=== PATIENT | male | born 1945 | race Caucasian/White ===

== ENCOUNTER 2018-01-14 16:57 | Emergency (ER) | payer OTHER, MEDICARE ==
[~2018-01-14 16:57] MED LIST: AMLO5TAB22 PO; ASPI81TA82 PO; DIVA250ER PO; LAMO100 PO; LISI-363 PO; OXYB10TA PO; ROSU20 PO
[2018-01-14 17:36] VITALS: BP 121/62; PULSE 69; RESP 16; TEMP 98.1
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
[2018-01-14] MEDS ORDERED: LISI-515 PO (20:53)
[2018-01-14] MEDS ORDERED: AMLO5TAB2 PO (20:53)
[2018-01-14] MEDS ORDERED: LAMI200T PO (20:53)
[2018-01-14] MEDS ORDERED: OXYB5TAB8 PO (20:53)
[2018-01-14] MEDS ORDERED: ASPI-516 CHEW (20:53)
[2018-01-14] MEDS ORDERED: TRIA1CAP6 PO (20:58)
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
== END 2018-01-14 22:35 | disposition home or self-care (01) ==
LOC: NEPD 16:57
DX: S09.90XA Unspecified injury of head, initial encounter (principal); S16.1XXA Strain of muscle, fascia and tendon at neck level, initial encounter; I10 Essential (primary) hypertension; V49.49XA Driver injured in collision with other motor vehicles in traffic accident, initial encounter; Y92.481 Parking lot as the place of occurrence of the external cause
CPT/HCPCS: 70450; 71046; 72040